=== PATIENT | female | born 1970 | race Caucasian/White ===

== ENCOUNTER → 2016-05-04 | Outpatient (CLI) | payer MEDICAID | LOC: MW.RT 20:53 | PROVIDERS: ATTEND Family Medicine | DX: G47.19 Other hypersomnia (principal); G47.9 Sleep disorder, unspecified | CPT/HCPCS: 95810 ==

== ENCOUNTER → 2016-06-15 | Outpatient (CLI) | payer MEDICAID ==
--- NOTE | 2016-06-16 10:36 | CT ---
EXAMINATION: CT right foot HISTORY: Pain COMPARISON: None TECHNIQUE: Axial CT images obtained through the right foot without contrast. Coronal and sagittal re constructions obtained. FINDINGS: There is advanced destruction noted at the first MTP joint. There is lateral subluxation o f the phalanx relative to the first metatarsal. There is an underlying fragmented osteochondral defe ct at the articular surface of the distal first metatarsal with distraction of the articular surface . There is a single screw within the proximal first phalanx and within the distal first metatarsal. Distal transmetatarsal amputation changes noted at the second digit. There is erosion of the distal aspect of the proximal third phalanx at the PIP joint. Bone mineralization otherwise appears normal. There is mild generalized soft tissue swelling most no table overlying the first MTP joint. No fracture or acute osseous abnormality is demonstrated. There is a moderate plantar calcaneal spur. IMPRESSION: 1. Advanced destruction of the first MTP joint with lateral subluxation of the phalanx relative to t he remaining articular surface of the MTP joint. 2. Transmetatarsal amputation changes at the distal second metatarsal. 3. Erosion of the distal aspect of the proximal third phalanx at the PIP joint, possibly postsurgica l.
== END ==
LOC: MW.DI 12:56
PROVIDERS: ATTEND Podiatrist Foot & Ankle Surgery
DX: M79.671 Pain in right foot (principal); S93.145A Subluxation of metatarsophalangeal joint of left lesser toe(s), initial encounter; Z89.421 Acquired absence of other right toe(s); M85.88 Other specified disorders of bone density and structure, other site
CPT/HCPCS: 73700-26-RT; 73700-RT

== ENCOUNTER 2016-10-13 08:36 | Day surgery (SDC) | payer MEDICAID ==
[~2016-10-13 08:36] MED LIST: Lactated Ringers 1,000 ML IV SCH; Sodium Chloride 0.9% 10 ML Syringe FLUSH PRN; Sodium Chloride 0.9% 2.5 ML Syringe FLUSH PRN
--- NOTE | 2016-10-13 09:00 | PCM.PREANE ---
Preanesthetic Assessment - Anesthesia/Transfusion/Family Hx Anesthesia History: Prior Anesthesia Without Reaction Family History of Anesthesia Reaction: No Transfusion History: No Prior Transfusion(s) - Review of Systems General: No Symptoms Pulmonary: No Symptoms (Oxygen 2L at night. Does not monitor O2 saturation..) Cardiovascular: No Symptoms Gastrointestinal: No Symptoms (States reflux is controlled on medication) Neurological: No Symptoms Other: Reports: None - Physical Assessment NPO Status Date: 10/12/16 NPO Status Time: 00:00 Height: 1.68 m Weight: 128.82 kg ASA Class: 3 Mental Status: Alert & Oriented x3 Airway Class: Mallampati = 2 Dentition: Reports: Caries Thyro-Mental Finger Breadths: 2 Mouth Opening Finger Breadths: 3 ROM/Head Extension: Full Lungs: Clear to Auscultation Cardiovascular: Tachycardia (States she gets tachycardia on and off and probably related to anxiety) - Allergies Allergies/Adverse Reactions: Allergies Allergy/AdvReac Type Severity Reaction Status Date / Time diclofenac Allergy Rectal Verified 10/11/16 13:57 Bleeding ibuprofen Allergy Ringing in Verified 10/11/16 13:57 the Ears - Acknowledgements Anesthesia Type Planned: MAC Pt an Appropriate Candidate for the Planned Anesthesia: Yes Alternatives and Risks of Anesthesia Discussed w Pt/Guardian: Yes Pt/Guardian Understands and Agrees with Anesthesia Plan: Yes PreAnesthesia Questionnaire Other HEENT History: uses reading glasses Cardiovascular History: Reports: Arrhythmia, High Cholesterol, Hypertension Other Cardiovascular History: hx of tachycardia Respiratory History: Reports: Sleep Apnea Other Respiratory History: uses O2 at night for obstructive sleep apnea Gastrointestinal History: Reports: Chronic Constipation, Chronic Diarrhea, GERD , Hemorrhoids, Hiatal Hernia, Irritable Bowel Syndrome Genitourinary History: Reports: None Other Genitourinary History: uses oxybutynin ERP ANALYST History: Reports: Polycystic Ovaries Musculoskeletal History: Reports: Arthritis, Back Pain, Chronic, Fibromyalgia, Neck Pain, Chronic Neurological History: Reports: Migraines Psychiatric History: Reports: Anxiety, Depression Endocrine/Metabolic History: Reports: Obesity/BMI 30+ Hematologic History: Reports: None Immunologic History: Reports: None Oncologic (Cancer) History: Reports: None Dermatologic History: Reports: Eczema Other Dermatologic History: ezcema - Past Surgical History Head Surgeries/Procedures: Reports: None HEENT Surgical History: Reports: LASIK, Oral Surgery Other HEENT Surgeries/Procedures: wisdom teeth Respiratory Surgical History: Reports: None Female Surgical History: Reports: Hysterectomy, Oophorectomy, Tubal Ligation Musculoskeletal Surgical History: Reports: Arthroscopic Knee, Hip Replacement, Other (See Below) Other Musculoskeletal Surgeries/Procedures:: bilateral BRAD, bunionectomy right great toe, amputation of second toe right foot, shaving of bones right foot - SUBSTANCE USE Smoking Status *Q: Current Every Day Smoker Tobacco Use Within Last Twelve Months: Cigarettes Second Hand Smoke Exposure: No Recreational Drug Use History: No - HOME MEDS Home Medications: Home Meds Amitriptyline [Elavil] 100 mg PO BEDTIME 09/15/14 [History] Cyclobenzaprine [Flexeril] 10 mg PO TID PRN 09/15/14 [History] Furosemide [Lasix] 20 mg PO DAILY 09/15/14 [History] Metoprolol Tartrate 25 mg PO BEDTIME 09/15/14 [History] Omeprazole 40 mg PO ACBREAKFAST 09/15/14 [History] Pravastatin [Pravachol] 40 mg PO BEDTIME 09/15/14 [History] Escitalopram Oxalate 20 mg PO DAILY 10/11/16 [History] Escitalopram [Lexapro] 20 mg PO DAILY 10/11/16 [History] Gabapentin [Neurontin] 900 mg PO TID 10/11/16 [History] LORazepam 1 mg PO BID PRN 10/11/16 [History] Lidocaine/Prilocaine [Lidocaine-Prilocaine Cream] 1 applic TOP ASDIRECTED PRN [History] Psyllium Husk [Metamucil] 1 dose PO ASDIRECTED PRN 10/11/16 [History] buPROPion HCl [Wellbutrin Xl] 300 mg PO DAILY 10/11/16 [History] oxyCODONE HCl/Acetaminophen [Endocet 7.5-325 mg Tablet] 1 tab PO ASDIRECTED PRN 10/11/16 [History] - CURRENT (IN HOUSE) MEDS Current Meds: Current Medications Lactated Ringer's (Ringers, Lactated) 1,000 mls @ 125 mls/hr IV ASDIRECTED VITOR Sodium Chloride (Saline Flush) 10 ml FLUSH ASDIRECTED PRN PRN Reason: Keep Vein Open Sodium Chloride (Saline Flush) 2.5 ml FLUSH ASDIRECTED PRN PRN Reason: Keep Vein Open
[2016-10-13] MEDS ORDERED: Lidocaine 2% 5 ML SDV ONE (11:12)
[2016-10-13] MEDS ORDERED: Propofol 200 MG/20 ML SDV ONE ×3 (11:13→11:42)
[2016-10-13] MEDS ORDERED: Midazolam 1 MG/ML 2 ML SDV ONE (11:13)
[2016-10-13] MEDS ORDERED: fentaNYL 100 MCG/2 ML SDV ONE (11:13)
[2016-10-13] MEDS ORDERED: ePHEDrine 50 MG/ML SDV ONE (12:01)
--- NOTE | 2016-10-13 12:30 | PCM.OPNOTE ---
- General Post-Op/Procedure Note Date of Surgery/Procedure: 10/13/16 Operative Procedure(s): Diagnostic EGD, colonoscopy Findings: Hiatal hernia, mild gastritis, diverticulosis, rectal polyp Pre Op Diagnosis: abdominal pain, diarrhea Post-Op Diagnosis: Hiatal hernia, mild gastritis, diverticulosis, rectal polyp Anesthesia Technique: [facility] [place] Primary Surgeon: Verenice Burns Condition: Good
--- NOTE | 2016-10-13 12:39 | PCM.POSTAN ---
POST ANESTHESIA ASSESSMENT - MENTAL STATUS Mental Status: Alert, Oriented - RESPIRATORY Respiratory Status: Respiratory Rate WNL, Airway Patent, O2 Saturation Stable - CARDIOVASCULAR CV Status: Pulse Rate WNL, Blood Pressure Stable - GASTROINTESTINAL GI Status: No Symptoms - POST OP HYDRATION Hydration Status: Adequate & Stable
--- NOTE | 2016-10-13 12:39 | PCM48HPAN ---
Post Anesthesia Note - EVALUATION WITHIN 48HRS OF ANESTHETIC Vital Signs in Normal Range: Yes Patient Participated in Evaluation: Yes Respiratory Function Stable: Yes Airway Patent: Yes Cardiovascular Function Stable: Yes Hydration Status Stable: Yes Pain Control Satisfactory: Yes Nausea and Vomiting Control Satisfactory: Yes Mental Status Recovered: Yes
[2016-10-13 13:49] VITALS: BP 134/70
--- NOTE | 2016-10-13 21:23 | OR ---
SURGEON: VERENICE BURNS MD DATE OF PROCEDURE: 10/13/2016 PREOPERATIVE DIAGNOSES: Abdominal pain, change in bowel habits. POSTOPERATIVE DIAGNOSES: Diverticulosis, hiatal hernia, and rectal polyp. PROCEDURE PERFORMED: Diagnostic EGD and colonoscopy. ENDOSCOPIST: Dr. Verenice Burns. INSTRUMENT USED: Olympus endoscope, Olympus colonoscope. ANESTHESIA: MAC. EXTENT OF EXAM: To the second portion of duodenum, up to the cecum. PREPARATION: Fair. LIMITATIONS: None. INDICATION FOR EXAMINATION: The patient is a 45-year-old female, who presents with vague abdominal complaints as well as multiple loose stools throughout the day. The decision was made to perform a diagnostic EGD and colonoscopy. We discussed the procedures as well as expected perioperative course. We discussed the risks, including bleeding, infection, or damage to surrounding structures, including perforation. The patient verbalized understanding and wishes to proceed. PROCEDURE IN DETAIL: The patient brought to the endoscopy suite and placed in a beach chair position. A time-out was completed verifying the patient's name, age, date of , allergies, and procedure to be performed. Monitored anesthesia care was induced and a bite block was placed in the patient's mouth. Continuous oxygen was provided via nasal cannula throughout the procedure. After adequate sedation was achieved, a well lubricated endoscope was placed in the patient's mouth and advanced under direct visualization to the level of the second portion of duodenum. A photograph was taken. The scope was then fully withdrawn while examining the mucosa of the upper GI tract. The second and first portion of duodenum appeared normal. The scope was brought into the stomach and a photograph was taken of the pylorus as well as the esophageal hiatus. The patient had a type 1 hiatal hernia. Upon examining the gastric mucosa, it appeared slightly atrophic and biopsies were taken of the gastric, antrum, body, and fundus. No ulcers or gross inflammation was noted. The scope was then brought into the distal esophagus and photograph was taken at the hiatal hernia. There was no esophagitis apparent. Remainder of the esophageal mucosa appeared normal. The scope was then removed from the patient and this portion of the procedure was terminated. The patient was then placed in left lateral decubitus position. A digital rectal exam was performed and was normal. A well lubricated colonoscope was inserted into the rectum and advanced under direct visualization to the level of cecum. The cecum was identified by both visual and anatomic landmarks. I took photograph of the cecal cap, but was unable to retroflex the scope within the cecum. The scope was then fully withdrawn while examining the color, texture, anatomy, and integrity of mucosa from the cecum to the anal canal. The patient was found to have diverticulosis of the colon. The scope was brought into the rectum and retroflexed to allow visualization of the anal canal opening. A small rectal polyp was noted. This was removed using a cold biopsy forceps. The anal canal opening appeared normal, however. The scope was then straightened out and fully withdrawn from the patient. The cecum to anus time was 15 minutes. The patient tolerated the procedure well and was taken of the recovery room in stable condition. ENDOSCOPIC DIAGNOSES: 1. Hiatal hernia. 2. Diverticulosis. 3. Rectal polyp. RECOMMENDATION: I will switch the patient from omeprazole to pantoprazole to see if this improves her reflux symptoms. I will also start the patient on scheduled Imodium to see if her diarrhea symptoms improved. We will revisit with the patient again in 2 weeks. ARUN GRECO /[id number]
== END 2016-10-13 13:04 | disposition home or self-care (01) ==
LOC: MW.SDS 08:36
PROVIDERS: ATTEND Surgery
DX: K29.50 Unspecified chronic gastritis without bleeding (principal); K62.1 Rectal polyp; K44.9 Diaphragmatic hernia without obstruction or gangrene; K57.30 Diverticulosis of large intestine without perforation or abscess without bleeding; F41.9 Anxiety disorder, unspecified; G89.4 Chronic pain syndrome; F32.9 Major depressive disorder, single episode, unspecified; M79.7 Fibromyalgia; K21.9 Gastro-esophageal reflux disease without esophagitis; I10 Essential (primary) hypertension; E78.00 Pure hypercholesterolemia, unspecified; M75.41 Impingement syndrome of right shoulder; M75.42 Impingement syndrome of left shoulder; K58.9 Irritable bowel syndrome, unspecified; G43.909 Migraine, unspecified, not intractable, without status migrainosus; M18.0 Bilateral primary osteoarthritis of first carpometacarpal joints; F17.210 Nicotine dependence, cigarettes, uncomplicated; E66.9 Obesity, unspecified; G47.33 Obstructive sleep apnea (adult) (pediatric); Z79.891 Long term (current) use of opiate analgesic; Z79.899 Other long term (current) drug therapy; Z96.649 Presence of unspecified artificial hip joint; Z90.710 Acquired absence of both cervix and uterus; Z90.721 Acquired absence of ovaries, unilateral; Z98.890 Other specified postprocedural states; Z68.42 Body mass index [BMI] 45.0-49.9, adult; Z88.6 Allergy status to analgesic agent
CPT/HCPCS: 43239; 45380; J2250; J3010; J7120; 00740; 88305; 88312; J2704

== ENCOUNTER 2022-05-30 21:22 | Emergency (ER) | payer SELFPAY ==
[2022-05-30] MEDS ORDERED: Lidocaine 1% 5 ML VIAL INJECT ONE (22:44)
[2022-05-31] MEDS ORDERED: oxyCODONE 5 MG Tab PO ONE (00:37)
[2022-05-31 00:58] VITALS: BP 118/79; PULSE 92
== END 2022-05-31 00:57 | disposition home or self-care (01) ==
LOC: MW.ED 21:22
DX: K04.7 Periapical abscess without sinus (principal); E78.00 Pure hypercholesterolemia, unspecified; I10 Essential (primary) hypertension; K21.9 Gastro-esophageal reflux disease without esophagitis; E66.9 Obesity, unspecified; Z68.41 Body mass index [BMI] 40.0-44.9, adult; Z88.8 Allergy status to other drugs, medicaments and biological substances; Z79.899 Other long term (current) drug therapy; Z72.0 Tobacco use
CPT/HCPCS: 41800; 99282; A9270; J3490